=== PATIENT | female | born 1930 | race Caucasian/White ===

== ENCOUNTER → 2019-06-10 | Outpatient (CLI) | payer MEDICARE, BC | LOC: MC.RAD 08:20 | DX: R92.0 Mammographic microcalcification found on diagnostic imaging of breast (principal) ==

== ENCOUNTER 2019-07-08 09:49 | Day surgery (SDC) | payer MEDICARE, BC ==
[2019-07-08] VITALS (11 sets, daily range): BP systolic 97–159; BP diastolic 47–74; PULSE 69–85; TEMP 97.3–97.9
[~2019-07-08] VITALS: Ht 165.1 cm; Wt 70.4 kg
[2019-07-08] MEDS ORDERED: ASPIRIN 32325 MG/TAB PO (10:35)
[2019-07-08] MEDS ORDERED: ALEVE 220MG220 MG PO (10:35)
--- NOTE | 2019-07-08 13:45 | NUR ---
PATIENT ADMITED INTO ROOM 343 POST OP LEFT SIMPLE MASTECTOMY. LEFT CHEST INCISION IS CD&I WITH GAUZE. LORENZA DRAIN TO COMPRESSION WITH SCANT BLOODY DRAINAGE NOTED. NO C/O PAIN. VSS. IV FLUIDS INFUSING INTO RIGHT WRIST IV. NO C/O N/V. LIQUIDS AT BEDSIDE. HEAD TO TOE ASSESSMENT WNL. DAUGHTER AT BEDSIDE. CALL LIGHT IN REACH.
--- NOTE | 2019-07-08 20:00 | NUR ---
Pt currently sitting up in bed at this time. Pt daughter was at bedside but she just left to go home for the night. Pt stated that she is having no pain at this time. Pt did say that her back was uncomfortable at this time pillows, were adjusted and pt stated this was better. No abnormal finding during assesment.There was 30cc was emptied out of her willis drain at this time. Pt has no complaints of pain at this time. Call light is within reach and bed is in lowest position
--- NOTE | 2019-07-09 02:16 | NUR ---
Pt currently sleeping in bed. Pt did wake up about 20 minutes ago and she was confused about her SCD pumps on her legs. Pt stated that she was no having any pain at this time. She stated that the only pain she had was when she was moving aroung in bed. She also stated that she was having a hard time sleeing, pt was given a warm blanket and readjusted her pillows to see if this help. Pt call light is within reach and bed is in lowest position.
[2019-07-09 04:00] VITALS: BP 129/45; PULSE 97; TEMP 98.1
--- NOTE | 2019-07-09 05:52 | NUR ---
Pt currently sitting up in bed watching television. She informed me that she was having a hard time falling asleep. She has her call light within reach and her bed is in lowest position.
[2019-07-09 07:14] VITALS: BP 144/67; PULSE 102; TEMP 97.8
--- NOTE | 2019-07-09 08:00 | NUR ---
PATIENT IS A&O. VSS. RATES LEFT CHEST PAIN AT 06/01. DENIES NEED FOR ANY PAIN MEDS. LEFT CHEST DRESSING IS CD&I WITH GAUZE. LORENZA DRAIN TO COMPRESSION WITH SMALL AMOUNTS OF BLOODY DRAINAGE NOTED. 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 NO C/O N/V. RIGHT WRIST IV TO INT. BREAKFAST TRAY AT BEDSIDE. AM MEDS GIVEN. HEAD TO TOE ASSESSMENT WNL. NO OTHER NEEDS. CALL LIGHT IN REACH.
--- NOTE | 2019-07-09 08:30 | NUR ---
DR.PAULS LEHMAN, SEE DISCHARGE ORDERS.
--- NOTE | 2019-07-09 11:30 | NUR ---
PATIENT DISCHARGING HOME VIA WC TO PERSONAL VEHICLE WITH DAUGHTER. GAVE DISCHARGE INSTRUCTIONS AND FOLLOW UP APT WITH . ALSO EDUCATED PATIENT ABOUT LORENZA DRAIN, CARING AND MEASURING OUTPUT. PATIENT GIVEN SUPPLIES AND LORENZA OUTPUT FLOWSHEET. ANSWERED ALL QUESTIONS/CONCERNS. RIGHT WRIST IV DC'D BY REHABILITATION ENGINEER. PATIENT HAS NEW ABD & HYPAFIX DRESSING TO LEFT CHEST INCISION. PATIENT DISCHARGED WITH PERSONAL BELONGINGS.
--- NOTE | 2019-07-09 11:50 | NUR ---
First visit from the courtesy driver. No needs right now.
== END 2019-07-09 11:30 | disposition home or self-care (01) ==
LOC: SDCO 09:49 → SURG 13:45 → SDCO 07-09 11:30
DX: D05.12 Intraductal carcinoma in situ of left breast (principal); N60.12 Diffuse cystic mastopathy of left breast; R13.10 Dysphagia, unspecified; Z90.11 Acquired absence of right breast and nipple; Z79.899 Other long term (current) drug therapy; Z79.82 Long term (current) use of aspirin; Z90.710 Acquired absence of both cervix and uterus; Z85.038 Personal history of other malignant neoplasm of large intestine; Z85.828 Personal history of other malignant neoplasm of skin; Z80.1 Family history of malignant neoplasm of trachea, bronchus and lung
CPT/HCPCS: OP; J0690; J1100; J1885; J2250; J2405; J2704; J2795; J3010; J7120